=== PATIENT | male | born 1940 | race Caucasian/White ===

== ENCOUNTER 2021-06-17 11:02 | Day surgery (SDC) | payer MEDICARE, MEDICAID ==
[~2021-06-17] VITALS: Ht 172.7 cm; Wt 86.3 kg
[~2021-06-17 11:02] MED LIST: clopidogrel 300mg tablet ONE
[2021-06-17 11:15] VITALS: BP 173/72
[2021-06-17] MEDS ORDERED: GLIM4TAB7 PO (11:35)
[2021-06-17] MEDS ORDERED: LEVO100T PO (11:35)
[2021-06-17] MEDS ORDERED: METO50TA7 PO (11:35)
[2021-06-17] MEDS ORDERED: ATOR40TA PO (11:35)
[2021-06-17] MEDS ORDERED: FLO0.4C PO (11:35)
[2021-06-17] MEDS ORDERED: LOSA25TA96 PO (11:35)
[2021-06-17] MEDS ORDERED: METF-900 PO (11:35)
[2021-06-17] MEDS ORDERED: AMLO2.5T2 PO (11:35)
[2021-06-17] MEDS ORDERED: fentaNYL/PF 50MCG/1 ML 2ML syringe ONE (12:03)
[2021-06-17] MEDS ORDERED: LIDOcaine Viscous 15ml cup ONE (12:03)
[2021-06-17] MEDS ORDERED: MIDAZolam 1 MG/ML 5ML VIAL ONE (12:03)
[2021-06-17 13:16] VITALS: BP 161/85
[2021-06-17 13:26] VITALS: BP 147/70
[2021-06-17 13:36] VITALS: BP 129/94
[2021-06-17 13:46] VITALS: BP 129/69
== END 2021-06-17 14:07 | disposition home or self-care (01) ==
LOC: GI LAB 11:02
PROVIDERS: ATTEND Internal Medicine Gastroenterology
DX: D50.9 Iron deficiency anemia, unspecified (principal); K92.1 Melena; K44.9 Diaphragmatic hernia without obstruction or gangrene; K29.50 Unspecified chronic gastritis without bleeding; D49.0 Neoplasm of unspecified behavior of digestive system; Z87.891 Personal history of nicotine dependence; I10 Essential (primary) hypertension; E11.9 Type 2 diabetes mellitus without complications; Z88.8 Allergy status to other drugs, medicaments and biological substances; Z79.84 Long term (current) use of oral hypoglycemic drugs; Z79.899 Other long term (current) drug therapy
CPT/HCPCS: 43239; 43255; G0500; J2250; J3010; J7040; Z7512; 88305; 88342; 99152; 99153; A4620